=== PATIENT | female | born 1975 | race African-American/Black ===

== ENCOUNTER 2017-09-24 19:03 | Emergency (ER) | payer MEDICAID ==
[~2017-09-24] VITALS: Ht 165.1 cm; Wt 68.0 kg
[~2017-09-24 19:03] MED LIST: CHLO.12%30 SSP; CLEO300C2 PO; HYDR-2768 PO; NAPR-576 PO; TRAM50 PO
[2017-09-24 20:01] VITALS: BP 147/81; PULSE 86; RESP 16; TEMP 98.9; O2SAT 100
--- NOTE | 2017-09-24 21:13 | PD ---
HPI Chief Complaint: Oral / Dental Pain or Problem Time Seen by Provider: 21:13 Travel History International Travel<30 days: No Contact w/Intl Traveler<30days: No Traveled to known affect area: No History of Present Illness HPI 42-year-old female came to the emergency room with history of toothache will lower left wisdom tooth. Patient says it has been going on for 2 weeks. She went to see a dentist who does not pull wisdom teeth. She has an appointment with another dentist which is not therefore another 1 week who will operate and take the tooth out. However the pain is worse and hence she is here today. Patient looks uncomfortable. No facial swelling. Vital signs are stable. PFSH Past Medical History Narrative Medical List of her past medical, surgical, social and family history reviewed from the nursing note. Blood Disorders: No Cancer: No Diminished Hearing: No Endocrine: No Gastrointestinal Disorders: No Genitourinary: No Hypertension: Yes (pre-eclampsia) Immune Disorder: No Implanted Vascular Access Dvce: No Musculoskeletal: No Reproductive: No Respiratory: No Immunizations Current: Yes Tetanus Vaccination: > 5 Years Influenza Vaccination: No ?: Unknown : 3 Para: 3 Past Surgical History Section: Yes (FOR 6MO OLD FETUS B/C OF PRE ECLAMPSIA/03/13/11) Gynecologic Surgery: Yes ( 2010) Other Surgery: Yes () Social History Alcohol Use: No Tobacco Use: No Substance Use: No Allergies-Medications (Allergen,Severity, Reaction): Coded Allergies: penicillin G (Unverified Allergy, Severe, Nausea/Vomiting, 09/24/17) Comments List of her allergies reviewed from the nursing note. Reported Meds & Prescriptions Reported Meds & Active Scripts Active Ibuprofen 600 Mg Tab 600 Mg PO Q6H PRN Clindamycin (Clindamycin HCl) 300 Mg Cap 300 Mg PO TID 10 Days Narrative Medication List of her home medications reviewed from the nursing note. Review of Systems Except as stated in HPI: all other systems reviewed are Neg HENT: Positive: Dental Difficulties Physical Exam Narrative GENERAL: Awake, alert, moderate distress SKIN: Focused skin assessment warm/dry. HEAD: Atraumatic. Normocephalic. EYES: Pupils equal and round. No scleral icterus. No injection or drainage. ENT: No nasal bleeding or discharge. Mucous membranes pink and moist. #19 has caries, impacted and gingivitis NECK: Trachea midline. No JVD. CARDIOVASCULAR: Regular rate and rhythm. No murmur appreciated. RESPIRATORY: No accessory muscle use. Clear to auscultation. Breath sounds equal bilaterally. GASTROINTESTINAL: Abdomen soft, non-tender, nondistended. Hepatic and splenic margins not palpable. MUSCULOSKELETAL: No obvious deformities. No clubbing. No cyanosis. No edema. NEUROLOGICAL: Awake and alert. No obvious cranial nerve deficits. Motor grossly within normal limits. Normal speech. PSYCHIATRIC: Appropriate mood and affect; insight and judgment normal. Data Data Last Documented VS Vital Signs Date Time Temp Pulse Resp B/P (MAP) Pulse Ox O2 Delivery O2 Flow Rate FiO2 09/24/17 21:45 09/24/17 21:16 98.7 86 20 98 Room Air Orders Orders Clindamycin (Cleocin) (09/24/17 21:30) Acetamin-Hydrocod 325-5 Mg (Reading 5-325 (09/24/17 21:30) Ed Discharge Order (09/24/17 21:29) [facility] Medical Decision Making Medical Screen Exam Complete: Yes Emergency Medical Condition: Yes Medical Record Reviewed: Yes Differential Diagnosis Caries, dental abscess, periodontitis Narrative Course 9:44 PM patient was given p.o. clindamycin and hydrocodone. I have given her list of the dentist in the area who she could try along with their phone numbers. Patient will be discharged home. Procedures EKG Prior to Arrival: No Diagnosis Primary Impression: Dentalgia Additional Impressions: Periodontitis impacted wisdom tooth Referrals: Primary Care Physician Additional Instructions: Take the medication as per the prescription direction. See a dentist as soon as possible to get the wisdom tooth pulled out probably. Return to the ER if condition worsens or any other new concerns. Med/Other Pt SpecificInfo: Prescription(s) given Scripts Ibuprofen (Ibuprofen) 600 Mg Tab 600 MG PO Q6H Y for Pain/Inflammation, #40 TAB 0 Refills Prov: Courtney Izaguirre MD 09/24/17 Clindamycin (Clindamycin) 300 Mg Cap 300 MG PO TID for Infection for 10 Days, CAP 0 Refills Prov: Courtney Izaguirre MD 09/24/17 Disposition: 01 DISCHARGE HOME Condition: Stable Courtney Izaguirre MD Sep 24, 2017 21:13
[2017-09-24 21:16] VITALS: BP 145/65; PULSE 86; RESP 20; TEMP 98.7; O2SAT 98
[2017-09-24] MEDS ORDERED: CLIN300C5 PO (21:29)
[2017-09-24] MEDS ORDERED: IBUP-232 PO (21:29)
[2017-09-24] MEDS ORDERED: ACETAMINOPHEN/HYDROcodone 325 MG/5 MG TAB PO ONE (21:30)
[2017-09-24] MEDS ORDERED: CLINDAMYCIN 150 MG CAP PO ONE (21:30)
== END 2017-09-24 21:49 | disposition home or self-care (01) ==
LOC: NEPD 19:03
DX: K05.30 Chronic periodontitis, unspecified (principal); K01.1 Impacted teeth
CPT/HCPCS: 99283